=== PATIENT | female | born 1990 | race African-American/Black ===

== ENCOUNTER 2021-06-21 14:15 | Emergency (ER) | payer OTHER ==
[~2021-06-21] VITALS: Ht 170.2 cm; Wt 75.2 kg
[2021-06-21 14:16] VITALS: BP 134/83
[2021-06-21] MEDS ORDERED: PROAAER10 INH (14:23)
[2021-06-21] MEDS ORDERED: FLUT44IN INH (14:23)
[2021-06-21] MEDS ORDERED: LIDOCAINE 2% MDV 20ML VIAL SC ONE (14:40)
[2021-06-21] MEDS ORDERED: IBUPROFEN 600MG TAB PO ONE (14:40)
[2021-06-21] MEDS ORDERED: BACT800T5 PO ×2 (15:02→15:47)
[2021-06-21] MEDS ORDERED: BACTRIM 160MG/800MG DS TAB PO ONE (15:05)
== END 2021-06-21 15:16 | disposition home or self-care (01) ==
LOC: M ED 14:15
DX: L02.214 Cutaneous abscess of groin (principal); J45.909 Unspecified asthma, uncomplicated